=== PATIENT | male | born 1950 | race Caucasian/White ===

== ENCOUNTER 2017-04-20 11:07 | Observation (INO) | payer MEDICARE, OTHER ==
[~2017-04-20] VITALS: Ht 170.2 cm; Wt 61.1 kg
--- NOTE | 2017-04-20 11:20 | ERD ---
ER Documentation Chief Complaint Chief Complaint ALOC HPI Patient is nonverbal and history is obtained from his son. 66-year-old male with a history of Parkinson's disease, Alzheimer's and worsening dementia presents to the emergency department via rescue ambulance for evaluation of unresponsiveness. Patient was in his usual state of health until prior to arrival when he apparently cried out became stiff and unresponsive for several minutes. According to family he is now back to his baseline. No prodrome. No recent URI symptoms, cough, vomiting or diarrhea. Good oral intake. No fevers or chills. ROS Unobtainable except as per HPI due to the patient's cognitive impairment. Medications Home Meds No Active Prescriptions or Reported Meds Allergies Allergies: Coded Allergies: No Known Allergy (Unverified , 04/20/17) PMhx/Soc Reviewed in chart. As per HPI. Dependent on all ADLs. Cared for at home by family. History of Surgery: No Anesthesia Reaction: No Hx Neurological Disorder: Yes (Dementia, Parkinson's, Alzheimer's) Hx Respiratory Disorders: No Hx Cardiac Disorders: No Hx Psychiatric Problems: No Hx Miscellaneous Medical Probl: No Hx Alcohol Use: No Hx Substance Use: No Hx Tobacco Use: No FmHx Father: of lung cancer, mother: of heart failure. Physical Exam Vitals Vital Signs Date Time Temp Pulse Resp B/P Pulse Ox O2 Delivery O2 Flow Rate FiO2 04/20/17 12:30 73 102/58 04/20/17 12:19 80 88/49 04/20/17 12:18 80 97/53 98 04/20/17 11:26 98.3 85 15 84/49 98 Physical Exam Const: Alert, unresponsive, nonverbal. Head: Atraumatic Eyes: Normal Conjunctiva, pupils equal reactive to light. No gaze preference. ENT: Normal External Ears, Nose and Mouth. Neck: Nontender. No meningismus. No JVD. Resp: Clear to auscultation bilaterally Cardio: Regular rate and rhythm, no murmurs Abd: Soft, non tender, non distended. Normal bowel sounds. No masses or abnormal pulsations Skin: No petechiae or rashes Back: No midline or flank tenderness Ext: No cyanosis, or edema. No leg pain or swelling. Is 4+ in all extremities. Neur: Awake and alert. Tremulous. Unresponsive. Cogwheel rigidity. Result Diagram: 12/5/17 1140 04/20/17 1140 Results 24 hrs Laboratory Tests Test 04/20/17 11:40 04/20/17 12:30 04/20/17 14:40 White Blood Count 6.510^3/ul Red Blood Count 3.2810^6/ul Hemoglobin 10.1g/dl Hematocrit 30.1% Mean Corpuscular Volume 91.8fl Mean Corpuscular Hemoglobin 30.8pg Mean Corpuscular Hemoglobin Concent 33.6g/dl Red Cell Distribution Width 13.1% Platelet Count 02126^3/UL Mean Platelet Volume 9.4fl Neutrophils % 60.8% Lymphocytes % 28.5% Monocytes % 7.8% Eosinophils % 2.0% Basophils % 0.3% Nucleated Red Blood Cells % 0.0/100WBC Neutrophils # 3.910^3/ul Lymphocytes # 1.810^3/ul Monocytes # 0.510^3/ul Eosinophils # 0.110^3/ul Basophils # 0.010^3/ul Nucleated Red Blood Cells # 0.010^3/ul Sodium Level 142mmol/L Potassium Level 4.1mmol/L Chloride Level 103mmol/L Carbon Dioxide Level 30mmol/L Anion Gap 13 Blood Urea Nitrogen 11mg/dl Creatinine 0.55mg/dl Glucose Level 110mg/dl Calcium Level 9.0mg/dl Total Bilirubin 0.3mg/dl Direct Bilirubin 0.00mg/dl Indirect Bilirubin 0.3mg/dl Aspartate Amino Transf (AST/SGOT) 27IU/L Alanine Aminotransferase (ALT/SGPT) 31IU/L Alkaline Phosphatase 40IU/L Troponin I < 0.012ng/ml Total Protein 6.5g/dl Albumin 3.3g/dl Globulin 3.20g/dl Albumin/Globulin Ratio 1.03 Urine Color COLORLESS Urine Clarity CLEAR Urine pH 8.0 Urine Specific [place] 1.006 Urine Ketones NEGATIVEmg/dL Urine Nitrite NEGATIVEmg/dL Urine Bilirubin NEGATIVEmg/dL Urine Urobilinogen NEGATIVEmg/dL Urine Leukocyte Esterase NEGATIVELeu/ul Urine Microscopic RBC 8/HPF Urine Microscopic WBC 0/HPF Urine Hemoglobin 1+mg/dL Urine Glucose NEGATIVEmg/dL Urine Total Protein NEGATIVEmg/dl Ammonia 26umol/l Current Medications Medications (Trade) Dose Ordered Sig/Edward Route PRN Reason Start Time Stop Time Status Last Admin Dose Admin Sodium Chloride (NS) 1,000 ml @ 1,000 mls/hr Q1H STAT IV 04/20/17 11:25 04/20/17 12:24 DC 04/20/17 11:25 Ondansetron HCl (Zofran Inj) 4 mg ER BRIDGE PRN IV NAUSEA AND/OR VOMITING 04/20/17 14:30 04/20/17 14:39 DC Acetaminophen 650 mg 650 mg ER BRIDGE PRN PO MILD PAIN/FEVER 04/20/17 14:30 04/21/17 14:29 Dextrose/Sodium Chloride (D5-1/2ns) 1,000 ml @ 75 mls/hr [id number] IV 04/20/17 15:00 Lorazepam (Ativan) 2 mg Q6H PRN IV seizure / agitation 04/20/17 15:00 Ondansetron HCl (Zofran Inj) 4 mg Q6H PRN IV NAUSEA AND/OR VOMITING 04/20/17 15:00 IMAGING: CHEST, AP Portable. Cardiac silhouette is normal. The costophrenic angles are clear. No effusions or infiltrates. No abnormalities of the bony thorax. EP interpretation: No acute disease. CT Brain without contrast. CLINICAL INDICATION: Seizure. Altered mental status. TECHNIQUE: A CT of the brain was performed on multidetector high-resolution CT scanner utilizing axial sections from the skull base through the vertex without contrast. The scan was reviewed in soft tissue brain and high frequency resolution bone algorithm windows. Images were reviewed on a high- resolution PACS workstation. One or more the following does reduction techniques were utilized: Automated exposure control, adjustment of the mA/ or kV according to patient's size, or use of iterative reconstruction technique. The exam CTDI = 45.01 mGy and the DLP = 720.23 mGy-cm. DICOM images are available. COMPARISON: None available. FINDINGS: The ventricles and sulci are moderately prominent indicative of volume loss including bilateral hippocampi. There is no intracranial hemorrhage, mass effect or midline shift. No abnormal intra-axial or extra-axial fluid collections are seen. The villagomez/white matter differentiation is preserved. There are moderate foci of hypoattenuation in the white matter, which are nonspecific in etiology but likely reflect chronic small vessel ischemic changes. There are moderate intracranial vascular calcifications consistent with atherosclerosis. The visualized paranasal sinuses are essentially clear. IMPRESSION: 1. No acute intracranial hemorrhage, transcortical infarction or mass effect. 2. Moderate intracranial atherosclerosis and chronic small vessel ischemic changes. 3. Moderate generalized cerebral volume loss. RPTAT: .Live Prado MD, Date Time Electronically viewed and signed by .Live Prado MD, on 04/20/2017 13: 07 .N/ EKG: Time: 11:34. Uninterpretable due to baseline artifact. monitoring engineer: 11:50. Sinus rhythm. Ventricular rate 72. No ectopy. Indication: Altered mental status Procedures/MDM DOCUMENTS REVIEWED: ED nurse, no prior records MEDICAL DECISION MAKIN-year-old male with a history of Parkinson's disease , Alzheimer's and worsening dementia presents to the emergency department via rescue ambulance for evaluation of unresponsiveness. On arrival to the ED patient was back to his baseline. No criteria for systemic inflammatory response or sepsis. Hypotension resolved with intravenous hydration. Abdominal exam is benign without significant tenderness, masses or other signs of an acute intra-abdominal process including but not limited to abdominal aortic aneurysm, diverticulitis, appendicitis and bowel obstruction. Cardiac arrhythmia is considered but there is no evidence of ischemia. No radiographic evidence of pneumonia or pneumothorax. Pulmonary embolism was considered but unlikely. Possible new onset seizure disorder. Shared decision making with the patient's family who did not feel comfortable taking him home and following up with a previously scheduled neurology appointment tomorrow. Patient will be admitted to telemetry for further evaluation and management. Counseled family regarding diagnosis, diagnostic results and plan for admission. CALLS/CONSULTS: Time 14:52, Dr. Alvarenga PATIENT CARE TRANSITIONED: Time: 14:58, Dr. Alvarenga. Departure Diagnosis: Primary Impression: Altered level of consciousness Additional Impressions: First time seizure Parkinson disease Severe dementia Condition: Serious NA LAMBERT MD Apr 20, 2017 11:20
[2017-04-20] MEDS ORDERED: SOD CHLORIDE 0.9% 1,000 ML IV STA (11:25)
--- NOTE | 2017-04-20 11:57 | RADRPT ---
PROCEDURE: Chest x-ray CLINICAL INDICATION: Shortness of breath TECHNIQUE: Chest single view COMPARISON: None FINDINGS: The heart is normal in size. The pulmonary vessels are normal in caliber. The lungs are clear. Th e costophrenic angles are sharp. The visualized bony thorax is unremarkable. IMPRESSION: No acute cardiopulmonary disease. RPTAT: HH .Donaldo Joya MD, Date Time Electronically viewed and signed by .Donaldo Joya MD, MD on 04/20/2017 11:57 .W/
[2017-04-20 12:12] LABS: BASOPHILS % 0.3 % (0.0-2.0); EOSINOPHILS # 0.1 10^3/ul (0.0-0.5); HEMATOCRIT 30.1 % (42.0-52.0); HEMOGLOBIN 10.1 g/dl (14.0-18.0); LYMPHOCYTES # 1.8 10^3/ul (0.8-2.9); LYMPHOCYTES % 28.5 % (15.0-51.0); MEAN CORPUSCULAR HEMOGLOBIN 30.8 pg (29.0-33.0); MEAN CORPUSCULAR HGB CONC 33.6 g/dl (32.0-37.0); MEAN CORPUSCULAR VOLUME 91.8 fl (82.0-101.0); MEAN PLATELET VOLUME 9.4 fl (7.4-10.4); MONOCYTE # 0.5 10^3/ul (0.3-0.9); MONOCYTES % 7.8 % (0.0-11.0); NEUTROPHIL # 3.9 10^3/ul (1.6-7.5); NEUTROPHILS % 60.8 % (39.0-77.0); PLATELET COUNT 225 10^3/UL (140-415); RED BLOOD COUNT 3.28 10^6/ul (4.70-6.10); RED CELL DISTRIBUTION WIDTH 13.1 % (11.5-14.5); WHITE BLOOD COUNT 6.5 10^3/ul (4.8-10.8)
[2017-04-20 12:35] LABS: ALANINE AMINOTRANSFERASE 31 IU/L (13-69); ALBUMIN 3.3 g/dl (3.3-4.9); ALBUMIN/GLOBULIN RATIO 1.03; ALKALINE PHOSPHATASE 40 IU/L (42-121); ANION GAP 13 (8-16); ASPARTATE AMINO TRANSFERASE 27 IU/L (15-46); BILIRUBIN,INDIRECT 0.3 mg/dl (0-1.1); BILIRUBIN,TOTAL 0.3 mg/dl (0.2-1.3); BLOOD UREA NITROGEN 11 mg/dl (7-20); CARBON DIOXIDE 30 mmol/L (21-31); CHLORIDE 103 mmol/L (97-110); CREATININE 0.55 mg/dl (0.61-1.24); GLUCOSE 110 mg/dl (70-220); POTASSIUM 4.1 mmol/L (3.5-5.1); SODIUM 142 mmol/L (135-144); TOTAL PROTEIN 6.5 g/dl (6.1-8.1)
[2017-04-20 12:52] LABS: TROPONIN-I < 0.012 ng/ml (0.00-0.12)
[2017-04-20 12:53] LABS: ADD UMIC YES; UR ASCORBIC ACID NEGATIVE (NEGATIVE); UR BILIRUBIN (Dip) NEGATIVE (NEGATIVE); UR BLOOD (Dip) 1+ mg/dL (NEGATIVE); UR CLARITY CLEAR (CLEAR); UR COLOR COLORLESS (YELLOW); UR GLUCOSE (Dip) NEGATIVE (NEGATIVE); UR KETONES (Dip) NEGATIVE (NEGATIVE); UR LEUKOCYTE ESTERASE (Dip) NEGATIVE Leu/ul (NEGATIVE); UR NITRITE (Dip) NEGATIVE (NEGATIVE); UR RBC 8 /HPF (0-5); UR SPECIFIC GRAVITY (Dip) 1.006 (1.003-1.030); UR TOTAL PROTEIN (Dip) NEGATIVE (NEGATIVE); UR UROBILINOGEN (Dip) NEGATIVE (NEGATIVE)
--- NOTE | 2017-04-20 13:07 | RADRPT ---
PROCEDURE: CT Brain without contrast. CLINICAL INDICATION: Seizure. Altered mental status. TECHNIQUE: A CT of the brain was performed on multidetector high-resolution CT scanner utilizing a xial sections from the skull base through the vertex without contrast. The scan was reviewed in sof t tissue brain and high frequency resolution bone algorithm windows. Images were reviewed on a high -resolution PACS workstation. One or more the following does reduction techniques were utilized: Aut omated exposure control, adjustment of the mA/ or kV according to patient's size, or use of iterativ e reconstruction technique. The exam CTDI = 45.01 mGy and the DLP = 720.23 mGy-cm. DICOM images are available. COMPARISON: None available. FINDINGS: The ventricles and sulci are moderately prominent indicative of volume loss including bilateral rajan ocampi. There is no intracranial hemorrhage, mass effect or midline shift. No abnormal intra-axial or extra-axial fluid collections are seen. The villagomez/white matter differentiation is preserved. There are moderate foci of hypoattenuation in the white matter, which are nonspecific in etiology bu t likely reflect chronic small vessel ischemic changes. There are moderate intracranial vascular ca lcifications consistent with atherosclerosis. The visualized paranasal sinuses are essentially clear . IMPRESSION: 1. No acute intracranial hemorrhage, transcortical infarction or mass effect. 2. Moderate intracranial atherosclerosis and chronic small vessel ischemic changes. 3. Moderate generalized cerebral volume loss. RPTAT: HH .Live Prado MD, MD Date Time Electronically viewed and signed by .Live Prado MD, MD on 04/20/2017 13:07 .N/
--- NOTE | 2017-04-20 14:28 | HP ---
Date/Time of Note Date/Time of Note DATE: 04/20/17 TIME: 14:27 Assessment/Plan VTE Prophylaxis VTE Prophylaxis Intervention: SCD's Assessment/Plan Assessment/Plan 66 yo M brought in for possible first time seizure episode with a 3 year hx of severe dementia and hyperrigidity managed at [facility] admitted for seizure workup and neurology review. PLAN: Tele OBs Neuro consult Brain MRI EEG ST eval if patient fails bedside swallow eval seizure precautions Supportive care Further interventions per clinical course Plan of care has been discussed with patient's family in detail , questions answered and they have verbalized understanding. HPI/ROS Admit Date/Time Admit Date/Time 04/20/17 Hx of Present Illness 66 yo M with a chronic hx of severe dementia which has been worsening, cared for in [facility], completely dependent on family for care who had what sounds like a first time seizure episode today. Patient was said to have a sudden flailing of the arms associated with making a loud grunting sound and becoming unresponsive with eyes rolling into the back of his head. Family called 911 and were instructed to start CPR. They never actually noted that he had a pulse. He was unresponsive till paramedics got there. Family believe he's back to baseline at this time, since they arrived in ER but he's being admitted for further workup based on possible 1st time seizure event. Patient has significant msc rigidity in lower extremities causing a pseudocontracted state but family does in bed exercises and can transfer him from bed to wheel chair. Patient is usually able to be fed a puree diet. Patient was also mildly hypotensive on arrival. ROS Subjective hx not possible: pt non-verbal Constitutional: No febrile, No nausea Gastrointestinal: No diarrhea, No vomiting Skin: No rash PMH/Family/Social Past Medical History * dementia / parkinson's Family History Significant Family History: no pertinent family hx Social History Alcohol Use: none Smoking Status: Unknown if ever smoked Drug Use: none Exam/Review of Systems Vital Signs Vitals VS - Last 72 Hours, by Label Date Time Temp Pulse Resp B/P Pulse Ox O2 Delivery O2 Flow Rate FiO2 04/20/17 12:30 73 102/58 04/20/17 12:19 80 88/49 04/20/17 12:18 80 97/53 98 04/20/17 11:26 98.3 85 15 84/49 98 Vital Signs Date Time Temp Pulse Resp B/P Pulse Ox O2 Delivery O2 Flow Rate FiO2 04/20/17 12:30 73 102/58 04/20/17 12:18 98 04/20/17 11:26 98.3 15 Exam Constitutional: other (grimaces involuntarily, no real response to communication, did not open eyes throughout my eval, however family says he's usually likel this for a time and will eventually respond), No alert Psych: other (unable to assesss) Head: normocephalic, No atraumatic Eyes: PERRL, No icteric ENMT: other (unable to assess) Respiratory: clear to auscultation, diminished breath sounds Cardiovascular: regular rate and rhythm, No murmurs/extra sounds Gastrointestinal: bowel sounds, non-tender (no grimacing ), soft Musculoskeletal: muscle tone (is significantly increased ) Extremities: No edema Neurological: No nl mental status Labs Result Diagram: 04/20/17 1140 04/20/17 1140 Procedures Procedures Laboratory Tests Test 04/20/17 11:40 04/20/17 12:30 White Blood Count 6.510^3/ul Red Blood Count 3.2810^6/ul Hemoglobin 10.1g/dl Hematocrit 30.1% Mean Corpuscular Volume 91.8fl Mean Corpuscular Hemoglobin 30.8pg Mean Corpuscular Hemoglobin Concent 33.6g/dl Red Cell Distribution Width 13.1% Platelet Count 27316^3/UL Mean Platelet Volume 9.4fl Neutrophils % 60.8% Lymphocytes % 28.5% Monocytes % 7.8% Eosinophils % 2.0% Basophils % 0.3% Nucleated Red Blood Cells % 0.0/100WBC Neutrophils # 3.910^3/ul Lymphocytes # 1.810^3/ul Monocytes # 0.510^3/ul Eosinophils # 0.110^3/ul Basophils # 0.010^3/ul Nucleated Red Blood Cells # 0.010^3/ul Sodium Level 142mmol/L Potassium Level 4.1mmol/L Chloride Level 103mmol/L Carbon Dioxide Level 30mmol/L Anion Gap 13 Blood Urea Nitrogen 11mg/dl Creatinine 0.55mg/dl Glucose Level 110mg/dl Calcium Level 9.0mg/dl Total Bilirubin 0.3mg/dl Direct Bilirubin 0.00mg/dl Indirect Bilirubin 0.3mg/dl Aspartate Amino Transf (AST/SGOT) 27IU/L Alanine Aminotransferase (ALT/SGPT) 31IU/L Alkaline Phosphatase 40IU/L Troponin I < 0.012ng/ml Total Protein 6.5g/dl Albumin 3.3g/dl Globulin 3.20g/dl Albumin/Globulin Ratio 1.03 Urine Color COLORLESS Urine Clarity CLEAR Urine pH 8.0 Urine Specific [place] 1.006 Urine Ketones NEGATIVEmg/dL Urine Nitrite NEGATIVEmg/dL Urine Bilirubin NEGATIVEmg/dL Urine Urobilinogen NEGATIVEmg/dL Urine Leukocyte Esterase NEGATIVELeu/ul Urine Microscopic RBC 8/HPF Urine Microscopic WBC 0/HPF Urine Hemoglobin 1+mg/dL Urine Glucose NEGATIVEmg/dL Urine Total Protein NEGATIVEmg/dl Current Medications Medications (Trade) Dose Ordered Sig/Edward Route PRN Reason Start Time Stop Time Status Last Admin Dose Admin Sodium Chloride (NS) 1,000 ml @ 1,000 mls/hr Q1H STAT IV 04/20/17 11:25 04/20/17 12:24 DC 04/20/17 11:25 1,000 MLS/HR Ondansetron HCl (Zofran Inj) 4 mg ER BRIDGE PRN IV NAUSEA AND/OR VOMITING 04/20/17 14:30 04/21/17 14:29 Acetaminophen (Tylenol Tab) 650 mg ER BRIDGE PRN PO MILD PAIN/FEVER 04/20/17 14:30 04/21/17 14:29 JUAN BRADSHAW Apr 20, 2017 14:28
[2017-04-20] MEDS ORDERED: ONDANSETRON 4 MG INJ IV PRN ×2 (14:30→15:00)
[2017-04-20] MEDS ORDERED: ACETAMINOPHEN 325 MG TAB PO PRN (14:30)
[2017-04-20] MEDS: DEXTROSE 5%-0.45% NACL 1,000 ML IV SCH (15:00)
[2017-04-20] MEDS ORDERED: LORAZEPAM 2 MG INJ IV PRN (15:00)
--- NOTE | 2017-04-20 15:15 | RADRPT ---
PROCEDURE: US Carotids. CLINICAL INDICATION: bruit , altered mental status TECHNIQUE: Multiple sonographic of the carotid bifurcation region and vertebral arteries were obta ined utilizing villagomez scale, duplex and color-flow imaging. The images were reviewed on a PACS worksta tion. COMPARISON: No prior studies are available for comparison. FINDINGS: The study is limited due to the patient's inability to move the neck due to prior fusion. Evaluation of the right carotid bifurcation region reveals no significant calcific atherosclerotic d isease. There is mild soft plaque with a 35% stenosis in the right common carotid artery. Evaluation of the left carotid bifurcation region reveals no significant calcific atherosclerotic di sease. There is mild soft plaque with a 26% stenosis in the left common carotid artery. There is antegrade flow within the vertebral arteries bilaterally. RIGHT CAROTID MEASUREMENTS: Common Carotid Tfsejk15.6 (cm/sec) Internal Carotid Artery - pabkvuar85.7 (cm/sec) Internal Carotid Artery - mid64.7 (cm/sec) Internal Carotid Artery - ujwsso30.3 (cm/sec) Internal Carotid/Common Carotid1.19 LEFT CAROTID MEASUREMENTS: Common Carotid Dqtbvz90.3 (cm/sec) Internal Carotid Artery - hkjbupcw41.5 (cm/sec) Internal Carotid Artery - mid63.4 (cm/sec) Internal Carotid Artery - .3 (cm/sec) Internal Carotid/Common Carotid0.78 RPTAT: AA IMPRESSION: No evidence for hemodynamically significant stenosis in the bilateral internal carotid arteries - va lidated velocity measurements with angiographic measurements, velocity criteria are extrapolated fro m diameter data as defined by the Society of Radiologists in Ultrasound Consensus Conference Radiolo gy 2003; 229;340-346. This study does indirectly reference the measurement of the distal ICA diamet er as the denominator for stenosis measurement. Normal antegrade flow in the vertebral arteries bilaterally. Mild soft plaque bilaterally . .Miguel A Goode MD, MD Date Time Electronically viewed and signed by .Miguel A Goode MD, on 04/20/2017 15:15 .S/
[2017-04-20 18:36] VITALS: TEMP 98.6
[2017-04-20 19:02] VITALS: BP 115/62; PULSE 74; RESP 18
[2017-04-20 19:15] VITALS: PULSE 68
[2017-04-20 19:48] VITALS: Ht 170.2 cm; Wt 61.1 kg
[2017-04-20 20:30] VITALS: BP 106/65; RESP 20
[2017-04-20 20:35] VITALS: PULSE 77
[2017-04-20] MEDS ORDERED: BACL10TA PO (22:56)
[2017-04-20] MEDS ORDERED: SERT50TA6 PO (22:59)
[2017-04-21] VITALS (13 sets, daily range): BP systolic 97–117; BP diastolic 50–62; PULSE 67–90; RESP 15–21
[2017-04-21] MEDS: DEXTROSE 5%-0.45% NACL 1,000 ML IV SCH ×2 (04:21→10:32)
--- NOTE | 2017-04-21 05:02 | CONS ---
DATE OF ADMISSION: 04/20/2017 DATE OF CONSULTATION: 04/20/2017 NEUROLOGY CONSULTATION Thank you, Dr. Bradshaw, for your kind referral for evaluation of possible seizure. HISTORY OF PRESENT ILLNESS: The patient is a 66-year-old gentleman with a history of dementia and s ome Parkinsonian syndrome for the last 2 years. At baseline, not verbal, not ambulatory, severe sti ffness in upper and lower extremities. Had an episode this morning when he yelled, moved his arms t o the sides and then became unresponsive with eyes open. The patient's son called paramedics and wa s advised on the telephone to perform CPR and after first or second chest compression, patient woke up and became responsive. No clonic movements observed. No tongue bite. According to the patient, on admission, he had very low blood pressure 80/40s. He had CAT scan which did not show any abnorm ality, white matter disease and moderate atrophy. Carotid ultrasound was done, no hemodynamically s ignificant lesions. Chest x-ray: No acute disease. LABORATORY DATA: Hemoglobin 10, hematocrit 30, rest of CBC within normal limits. Comprehensive met abolic panel essentially within normal limits. BUN 11, creatinine 0.55. Ammonia 26. Urinalysis 1+ hemoglobin, otherwise negative. CURRENT MEDICATIONS: Essentially none. He received normal saline 1 liter and was placed on D5 with normal saline 75 mL per hour. ALLERGIES: NONE. SOCIAL HISTORY: No alcohol, tobacco, drug use. FAMILY HISTORY: Noncontributory. MEDICATIONS: At home: 1. Baclofen 10 mg 3 times a day. 2. Sertraline 50 mg. PHYSICAL EXAMINATION: VITAL SIGNS: 98.0 temperature, pulse 77, 20 respirations, 106/65 blood pressure. GENERAL: Not in acute distress, lying in bed. HEENT: Normocephalic, atraumatic head. NECK: No carotid bruits. LUNGS: Clear to auscultation bilaterally. CARDIAC: Normal cardiac rhythm and sounds. ABDOMEN: Soft. EXTREMITIES: No cyanosis, clubbing or edema. NEUROLOGIC: He is awake at times, looks to voice. Does not follow commands, not verbal. Present r esponse to visual threat bilaterally. Pupils reactive from 3 to 2 mm bilaterally. Extraocular move ments intact without nystagmus. Symmetrical face. Preserved facial strength and sensation. Cornea l reflexes present bilaterally as well as gag. Motor strength examination shows increased tone with rigidity in upper and lower extremities, flexed upper and lower extremities. There are minimal mov ements to noxious stimuli in all extremities. Deep tendon reflexes 1+ upper extremities, absent in lower extremities. Equivocal response to plantar stimulation bilaterally. No tremor was observed. IMPRESSION: A 66-year-old gentleman with baseline dementia/parkinsonism by history. He is being ev aluated at [facility]. It is not clear if the episode that brought him here is seizure. It is possible t hat it was only tonic seizure without clonic component, could also be symptomatic secondary to sever e hypotension, so I think it is okay not to initiate any antiepileptic coverage. Continue hydration . EEG was done, I will review. If patient has no episodes in 24 hours, probably he could be discha rged from a neurological perspective. Thank you very much for this interesting consult. Dictated By: SHRADDHA JimenezV/JASMIN Conf#: [id number] DID#: [id number] CC: JUAN BRADSHAW MD;*EndCC*
[2017-04-21 08:33] LABS: BASOPHILS % 0.3 % (0.0-2.0); EOSINOPHILS # 0.1 10^3/ul (0.0-0.5); EOSINOPHILS % 1.9 % (0.0-7.0); HEMATOCRIT 30.9 % (42.0-52.0); HEMOGLOBIN 10.5 g/dl (14.0-18.0); LYMPHOCYTES # 1.7 10^3/ul (0.8-2.9); LYMPHOCYTES % 23.8 % (15.0-51.0); MEAN CORPUSCULAR HEMOGLOBIN 30.9 pg (29.0-33.0); MEAN CORPUSCULAR VOLUME 90.9 fl (82.0-101.0); MEAN PLATELET VOLUME 9.7 fl (7.4-10.4); MONOCYTE # 0.6 10^3/ul (0.3-0.9); MONOCYTES % 8.7 % (0.0-11.0); NEUTROPHIL # 4.6 10^3/ul (1.6-7.5); PLATELET COUNT 226 10^3/UL (140-415); RED CELL DISTRIBUTION WIDTH 13.1 % (11.5-14.5)
[2017-04-21 09:09] LABS: ALBUMIN 3.6 g/dl (3.3-4.9); BILIRUBIN,INDIRECT 0.4 mg/dl (0-1.1); BILIRUBIN,TOTAL 0.4 mg/dl (0.2-1.3); CREATININE 0.59 mg/dl (0.61-1.24); PHOSPHORUS 3.7 mg/dl (2.5-4.9); POTASSIUM 3.7 mmol/L (3.5-5.1)
[2017-04-21 09:26] LABS: THYROID STIMULATING HORMONE 3.53 MIU/L (0.465-4.680)
[2017-04-21] MEDS: COLLAGENASE 30 GM TUBE TOP SCH (12:46)
--- NOTE | 2017-04-21 15:53 | PN ---
Date/Time of Note Date/Time of Note DATE: 04/21/17 TIME: 15:51 Assessment/Plan VTE Prophylaxis VTE Prophylaxis Intervention: SCD's Lines/Catheters IV Catheter Type (from Nrs): Saline Lock Urinary Cath still in place: No Assessment/Plan Assessment/Plan 66 yo M brought in for possible first time seizure episode with a 3 year hx of frontotemporal dementia and hyperrigidity managed at [facility] admitted for seizure workup and neurology review. PLAN: we will await MRI findings. If negative, possible d/c Subjective 24 Hr Interval Summary Free Text/Dictation Family reports patient reports remains in stable condition. There have been no further seizure like episodes. Family is concerned about when patient will eat. MRI report still pending. Exam/Review of Systems Vital Signs Vitals Vital Signs Date Time Temp Pulse Resp B/P Pulse Ox O2 Delivery O2 Flow Rate FiO2 04/21/17 12:05 80 04/21/17 11:13 98.5 16 117/59 95 04/20/17 19:02 Room Air Intake and Output 04/20/17 04/20/17 04/21/17 15:00 23:00 07:00 Intake Total 300 ml Output Total 650 ml Balance -350 ml Exam Constitutional: other ( after some stimulation, patient was aroused, communicated by nodding, and even and said a few yeses to questions, was able to sleep from a straw without coughing or gagging in my presence.) No alert Psych: other (unable to assesss) Head: normocephalic, No atraumatic Eyes: PERRL, No icteric ENMT: other (unable to assess) Respiratory: clear to auscultation, diminished breath sounds Cardiovascular: regular rate and rhythm, No murmurs/extra sounds Gastrointestinal: bowel sounds, non-tender (no grimacing ), soft Musculoskeletal: Hyper rigidity Extremities: No edema Neurological: See general. It is hard to assess for focal deficits however due to patient's history of FTD. Results Result Diagram: 04/21/17 0748 04/21/17 0748 Results 24 hrs Laboratory Tests Test 04/21/17 07:48 White Blood Count 7.0 Red Blood Count 3.40 L Hemoglobin 10.5 L Hematocrit 30.9 L Mean Corpuscular Volume 90.9 Mean Corpuscular Hemoglobin 30.9 Mean Corpuscular Hemoglobin Concent 34.0 Red Cell Distribution Width 13.1 Platelet Count 226 Mean Platelet Volume 9.7 Neutrophils % 65.0 Lymphocytes % 23.8 Monocytes % 8.7 Eosinophils % 1.9 Basophils % 0.3 Nucleated Red Blood Cells % 0.0 Neutrophils # 4.6 Lymphocytes # 1.7 Monocytes # 0.6 Eosinophils # 0.1 Basophils # 0.0 Nucleated Red Blood Cells # 0.0 Sodium Level 140 Potassium Level 3.7 Chloride Level 102 Carbon Dioxide Level 29 Anion Gap 13 Blood Urea Nitrogen 7 Creatinine 0.59 L Glucose Level 99 Hemoglobin A1c 5.5 Calcium Level 9.0 Phosphorus Level 3.7 Magnesium Level 2.0 Total Bilirubin 0.4 Direct Bilirubin 0.00 Indirect Bilirubin 0.4 Aspartate Amino Transf (AST/SGOT) 27 Alanine Aminotransferase (ALT/SGPT) 34 Alkaline Phosphatase 44 Total Protein 7.0 Albumin 3.6 Vitamin B12 Level 621 Thyroid Stimulating Hormone (TSH) 3.530 Medications Medications Current Medications Dextrose/Sodium Chloride (D5-1/2ns) 1,000 ml @ 75 mls/hr [id number] IV Last administered on 04/21/17 10:32; Admin Dose 75 MLS/HR; Start 04/20/17 at 15:00 Lorazepam (Ativan) 2 mg Q6H PRN IV seizure / agitation; Start 04/20/17 at 15:00 Ondansetron HCl (Zofran Inj) 4 mg Q6H PRN IV NAUSEA AND/OR VOMITING; Start 04/20/17 at 15:00 Collagenase (Santyl) 1 applic DAILY TOP Last administered on 04/21/17 12:46; Admin Dose 1 APPLIC; Start 04/21/17 at 12:00 JUAN BRADSHAW Apr 21, 2017 15:53
--- NOTE | 2017-04-21 16:00 | RADRPT ---
PROCEDURE: MRI Brain without contrast. CLINICAL INDICATION: Altered mental status TECHNIQUE: Routine MRI of the brain performed without intravenous contrast. COMPARISON: CT BRAIN 04/20/2017 FINDINGS: Examination is degraded due to patient motion artifact. Diffusion: No evidence of acute infarct, recent ischemia, or recent ictal focus. Hemorrhage: No evidence of focal hematoma or subarachnoid hemorrhage. No evidence for remote blood d egradation products. Mass effect/midline shift: None. Parenchymal volume: Moderate - severe central parenchymal volume loss is evident. Ventricular system: Moderate disproportionate enlargement of the ventricular system in comparison to the overlying sulci which can be seen in patients with normal pressure or communicating hydrocephal us. Parenchymal signal changes: Nonspecific small scattered areas of T2 and FLAIR signal hyperintensity measuring several millimeters are seen in the supratentorial white matter most commonly due to chron ic moderate microvascular ischemic changes. Differential considerations include sequelae of migraine s; prior parenchymal injury from infectious or inflammatory/demyelinating process; vasculopathy. Vasculature: Appropriate flow voids suggesting patency of the central arterial system and visualize d dural venous sinuses. Paranasal sinuses: Clear. Mastoid air cells: Clear. Calvarium: Within normal limits. Extracranial soft tissues: Within normal limits. IMPRESSION: No evidence of diffusion signal abnormalities to suggest acute infarct, recent ischemia, or recent i ctal focus. Moderate disproportionate enlargement of the ventricular system in comparison to the overlying sulci which can be seen in patients with normal pressure or communicating hydrocephalus. Nonspecific small scattered areas of T2 and FLAIR signal hyperintensity measuring several millimeter s are seen in the supratentorial white matter most commonly due to chronic moderate microvascular is chemic changes. Differential considerations include sequelae of migraines; prior parenchymal injury from infectious or inflammatory/demyelinating process; vasculopathy. RPTAT: AADD .Luis Bauman MD, MD Date Time Electronically viewed and signed by .Luis Bauman MD, on 04/21/2017 16:00 .B/
[2017-04-21] MEDS ORDERED: ARTIFICIAL TEARS 15 ML OPH BOTH EYES PRN (22:30)
[2017-04-22] VITALS (7 sets, daily range): BP systolic 98–118; BP diastolic 55–62; PULSE 67–80; RESP 16–18
--- NOTE | 2017-04-22 01:24 | SP ---
DATE OF PROCEDURE: 04/20/2017 A 66-year-old gentleman with dementia, presented after episodes of transient unresponsiveness, possi ble seizures, as well as low blood pressure. DESCRIPTION OF PROCEDURE: Routine EEG was recorded digitally. Psngb-lm-drsmi and aolze-si-rvx tomasz ages were recorded and reviewed. All impedances were measured and recorded. Cap electrodes were pl aced in accordance with International 10-20 system of electrode placement. FINDINGS: Background activity of low amplitude of 2-4 cycles per second, intermixing with smaller a mplitude higher frequency beta DVT range activity was seen most of the recording. There are an abun dance of muscle movement artifacts degrading quality of the study. No definite epileptiform transie nts were seen. No signs of ongoing electrographic seizures or lateralized slowing. No definite res ponse to photic stimulation. IMPRESSION: Abnormal study secondary to background slowing which could reflect presence of encephal opathy. Again, the study is degraded by a great deal of artifacts, but no ongoing seizures seen. N o definite epileptiform activity was seen as well. Dictated By: SHRADDHA DIEHL/JASMIN Conf#: [id number] DID#: [id number] CC: JUAN BRADSHAW MD;*EndCC*
[2017-04-22] MEDS: DEXTROSE 5%-0.45% NACL 1,000 ML IV SCH (06:04)
[2017-04-22 07:38] LABS: BASOPHILS % 0.5 % (0.0-2.0); EOSINOPHILS # 0.1 10^3/ul (0.0-0.5); EOSINOPHILS % 1.1 % (0.0-7.0); HEMATOCRIT 30.4 % (42.0-52.0); HEMOGLOBIN 10.3 g/dl (14.0-18.0); LYMPHOCYTES # 1.9 10^3/ul (0.8-2.9); LYMPHOCYTES % 23.9 % (15.0-51.0); MEAN CORPUSCULAR HEMOGLOBIN 30.9 pg (29.0-33.0); MEAN CORPUSCULAR HGB CONC 33.9 g/dl (32.0-37.0); MEAN CORPUSCULAR VOLUME 91.3 fl (82.0-101.0); MEAN PLATELET VOLUME 9.7 fl (7.4-10.4); MONOCYTE # 0.7 10^3/ul (0.3-0.9); MONOCYTES % 8.1 % (0.0-11.0); NEUTROPHIL # 5.3 10^3/ul (1.6-7.5); PLATELET COUNT 215 10^3/UL (140-415); RED BLOOD COUNT 3.33 10^6/ul (4.70-6.10); RED CELL DISTRIBUTION WIDTH 13.2 % (11.5-14.5); WHITE BLOOD COUNT 8.1 10^3/ul (4.8-10.8)
[2017-04-22 07:44] LABS: CALCIUM 8.7 mg/dl (8.4-10.2); CREATININE 0.55 mg/dl (0.61-1.24); POTASSIUM 3.9 mmol/L (3.5-5.1)
--- NOTE | 2017-04-22 09:19 | DS ---
Date/Time of Note Date/Time of Note DATE: 04/22/17 TIME: 09:18 Discharge Summary Admission/Discharge Info Admit Date/Time Apr 20, 2017 at 14:05 Discharge Date/Time Discharge Diagnosis * First-time seizure-like episode, likely secondary to possible aspiration * Chronic frontotemporal dementia . Patient Condition: Stable Consults * Neurology: Johnny Newman . Procedures See HPI . Hx of Present Illness 66 yo M with a chronic hx of severe dementia which has been worsening, cared for in [facility], completely dependent on family for care who had what sounds like a first time seizure episode today. Patient was said to have a sudden flailing of the arms associated with making a loud grunting sound and becoming unresponsive with eyes rolling into the back of his head. Family called 911 and were instructed to start CPR. They never actually noted that he had a pulse. He was unresponsive till paramedics got there. Family believe he's back to baseline at this time, since they arrived in ER but he's being admitted for further workup based on possible 1st time seizure event. Patient has significant msc rigidity in lower extremities causing a pseudocontracted state but family does in bed exercises and can transfer him from bed to wheel chair. Patient is usually able to be fed a puree diet. Patient was also mildly hypotensive on arrival. . Hospital Course 66-year-old male with a history of frontotemporal dementia who was brought into the ER after he had what seemed like a first-time seizure episode. He was admitted for new seizure workup, and he was seen by neurology and underwent EEG as well as MRI. EEG showed no ongoing seizures, and his MRI well he did not show any acute abnormalities, did show some concern for possible normal pressure communicating hydrocephalus. This will be reviewed with neurology, and depending on their recommendations will determine further course of action. Otherwise the patient remained stable throughout his hospitalization with no further episodes. Neurology did not recommend seizure prophylaxis based on the fact that the exact incidents were unclear, and patient has had no further seizures since. Of note is that when he came in he did have a mildly low blood pressure, but this was not sustained, patient was worked up extensively for underlying infection and none were found. Note that patient is chronically bedbound because of his FTD and hyper rigidity, and is completely dependent on his family. There is a high possibility patient could have temporarily aspirated, causing his symptoms. However there were no concerns for aspiration pneumonia throughout his 48 hour hospitalization. Family have been advised however on what to look out for when to return to the hospital. We will await neurology review of MRI findings, if no further indications for intervention, patient to be discharged home in stable condition. Home Meds Reported Medications Sertraline Hcl* (Sertraline Hcl*) 50 Mg Tablet, 50 MG PO QPM, #30 TAB 04/20/17 Baclofen* (Baclofen*) 10 Mg Tablet, 10 MG PO TID, TAB 04/20/17 Follow-up Plan Patient will follow-up with his usual primary care doctor, and will continue his scheduled follow-up at [facility] with his neurologist. . Primary Care Provider Care Physician No Primary Time spent on discharge: > 30 minutes Pending Labs Laboratory Tests Test 04/22/17 07:00 White Blood Count 8.110^3/ul (4.8-10.8) Red Blood Count 3.3310^6/ul (4.70-6.10) Hemoglobin 10.3g/dl (14.0-18.0) Hematocrit 30.4% (42.0-52.0) Mean Corpuscular Volume 91.3fl (82.0-101.0) Mean Corpuscular Hemoglobin 30.9pg (29.0-33.0) Mean Corpuscular Hemoglobin Concent 33.9g/dl (32.0-37.0) Red Cell Distribution Width 13.2% (11.5-14.5) Platelet Count 45013^3/UL (140-415) Mean Platelet Volume 9.7fl (7.4-10.4) Neutrophils % 66.0% (39.0-77.0) Lymphocytes % 23.9% (15.0-51.0) Monocytes % 8.1% (0.0-11.0) Eosinophils % 1.1% (0.0-7.0) Basophils % 0.5% (0.0-2.0) Nucleated Red Blood Cells % 0.0/100WBC (0.0-0.0) Neutrophils # 5.310^3/ul (1.6-7.5) Lymphocytes # 1.910^3/ul (0.8-2.9) Monocytes # 0.710^3/ul (0.3-0.9) Eosinophils # 0.110^3/ul (0.0-0.5) Basophils # 0.010^3/ul (0.0-0.1) Nucleated Red Blood Cells # 0.010^3/ul (0.0-0.0) Sodium Level 141mmol/L (135-144) Potassium Level 3.9mmol/L (3.5-5.1) Chloride Level 104mmol/L (97-110) Carbon Dioxide Level 29mmol/L (21-31) Anion Gap 12 (8-16) Blood Urea Nitrogen 6mg/dl (7-20) Creatinine 0.55mg/dl (0.61-1.24) Glucose Level 105mg/dl (70-220) Calcium Level 8.7mg/dl (8.4-10.2) JUAN BRADSHAW Apr 22, 2017 09:18
[2017-04-22] MEDS: COLLAGENASE 30 GM TUBE TOP SCH (09:30)
--- NOTE | 2017-04-22 14:21 | PDOCDIS ---
Discharge Instructions DIAGNOSIS Discharge Diagnosis * First-time seizure-like episode, likely secondary to possible aspiration * Chronic frontotemporal dementia . CONDITION Patient Condition: Stable HOME CARE INSTRUCTIONS: Special Diet: puree FOLLOW UP/APPOINTMENTS Follow-up Plan Patient will follow up with his primary care physician within 1-2 weeks and he will continue routine follow-up at [facility] as previous. This has all been communicated to the son and . JUAN BRADSHAW Apr 22, 2017 14:21
== END 2017-04-22 15:25 | disposition home or self-care (01) ==
LOC: E/R 11:07 → TEL 14:05
PROVIDERS: ADMIT Family Medicine; ATTEND Family Medicine
DX: R56.9 Unspecified convulsions (principal); G30.9 Alzheimer's disease, unspecified; F02.80 Dementia in other diseases classified elsewhere, unspecified severity, without behavioral disturbance, psychotic disturbance, mood disturbance, and anxiety; G31.83 Neurocognitive disorder with Lewy bodies; G31.09 Other frontotemporal neurocognitive disorder
CPT/HCPCS: 36415; 70450; 70551; 71010; 80048; 80053; 80076; 81001; 82140; 82607; 83036; 83735; 84100; 84443; 84484; 85025; 87086; 92610; 93005; 93880; 95819; 99285; G0378; G8996; G8997; G8998; J7030; J7042